=== PATIENT | female | born 1980 | race Asian ===

== ENCOUNTER 2019-08-30 18:56 | Inpatient (IN) ==
--- NOTE | 2019-08-30 20:52 | History & Physical Report ---
Date of Service August 30, 2019 Assessment & Plan (1) : Discussion with patient via [employer] continuous improvement facilitator vs repeat section. She and asked about chances of successful , per [facility] calculator, this is 49.1%. I told them that I would typically encourage a p atient to consider , as I think the chances are good if the number is above 50%. I discussed with them that I do not think her chances are very high for successful vaginal delivery because her cervix is closed, and she is not jessica, and she has been ruptured for >14 hours. She is not able to make up her mind about whether she wants to try or proceed with section. She and her want time to discuss this alone together. (2) Previous delivery affecting : History of Present Illness Chief Complaint: PROM Primary Care Provider: NO PCP 39yo @ 39 08/13 with self-reported rupture of membranes for clear fluid at 7am today. She did not contact our office throughout the day today, but then called on-call physician at approx 5:45 pm and was directed to come to labor & delivery. No contractions. Some small amount of pink tinge to fluid. + movement. is complicated by history of section. Per her operative report from [place], she had a low transverse for failure to dilate. She had originally been scheduled for repeat at 39 weeks, but this was then cancelled as she desired opportunity to . Now she is not sure what she'd like to do. otherwise complicated by advanced maternal age, late transfer of care from [place] at 32 weeks, and noncompliance with attendance at visits. Allergies Allergy/AdvReac Type Severity Reaction Status Date / Time No Known Allergies Allergy Verified 08/26/19 08:13 Home Medications Home Medications Medication Instructions Recorded Confirmed Type prenat.vits,eriberto,zng-rvyw-likok 1 tab PO DAILY 07/14/19 08/30/19 History Patient History Medical History Abnormal biochemical finding on screening of mother Surgical History S/P section 2013 FTP Family History Mother Diabetes Brother Tuberculosis Other Twins, both liveborn Social History Preferred Language: Mandarin British Communication Ability: Effective Quality Tester Required: Yes Beliefs That Will Affect Care: None marital status: marital status details: Jayce Corado [phone] Current Living Situation: Spouse Current Living Situation Comment: apartment with son current occupational status: employed 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 SVE: closed/50/high FHT 130s moderate variability, +accels. One episode of what appeared to be a deceleration for 1 minute, but baby did not trace. Otherwise Cat 1 reactive tracing [place]: Rare Constitutional: WD/WN, vitals as above Respiratory: normal respiratory effort, lungs clear to auscultation no respiratory distress Cardiovascular: Rate/Rhythm: regular rate and regular rhythm Gastrointestinal (Abdomen): Inspection/Auscultation: abdomen normal to inspection Percussion/Palpation: abdomen soft; abdomen nontender Gravid. No s/s chorio or abruption. Skin: no rashes, warm and dry Psychiatric: A+Ox3, euthymic affect Results & Data Vital Signs (Past 12 Hours) Vital Signs Temp Pulse Resp BP Pulse Ox 08/30/19 20:16 64 97 08/30/19 20:11 55 L 99 08/30/19 20:06 63 98 08/30/19 20:01 60 99 08/30/19 19:56 68 99 08/30/19 19:51 56 L 99 08/30/19 19:44 57 L 98 08/30/19 19:39 54 L 98 08/30/19 19:34 58 L 98 08/30/19 19:29 60 98 08/30/19 19:24 36.7 C 61 18 98 08/30/19 19:19 56 L 99 08/30/19 19:05 36.7 C 54 L 18 113/54 L Coding Level of Care Code None Diagnoses Z34.90 Previous delivery affecting O34.219
[2019-08-30] MEDS ORDERED: LACTATED RINGER'S 1,000 ML IV PRN (21:19)
[2019-08-30] MEDS ORDERED: OXYTOCIN 30 UNITS/500 ML BAG IV PRN (21:19)
[2019-08-30 21:43] LABS: Hematocrit (blood only) 35.9 % (37-47); Hemoglobin 12.4 g/dL (12.0-16.0); Mean Corpuscular Hemoglobin 32.5 pg (25-34); Mean Corpuscular Volume 94.2 fL (80-100); Mean Platelet Volume 10.6 fL (7.4-10.4); Platelet Count 142 K/uL (130-400); RDW Coefficient of Variation 13.9 % (11.5-14.5); RDW Standard Deviation 47.4 fL (36.4-46.3); Red Blood Count 3.81 M/uL (4.2-5.4); White Blood Count 5.26 K/uL (4.8-10.8)
[2019-08-30 21:50] LABS: Mean Corpuscular Hgb Conc 34.5 g/dL (32-36)
--- NOTE | 2019-08-30 22:11 | Anesthesiology Consultation ---
Date of Service August 30, 2019 Assessment & Plan (1) Encounter for pre-operative examination: Chart Review Chart Review: Acceptable Risk for Surgery and Patient NOT seen in Pre Admission Testing Consults Requested none History Height/Weight Height: 5 ft 1.42 in Weight: 67.132 kg Allergies Allergy/AdvReac Type Severity Reaction Status Date / Time No Known Allergies Allergy Verified 08/26/19 08:13 Medications Home Medications Medication Instructions Recorded Confirmed Last Taken prenat.vits,eriberto,opo-xzie-spxro 1 tab PO DAILY 07/14/19 08/30/19 Unknown Active Medications Generic Name Dose Route Start Last Admin Trade Name Freq PRN Reason Stop Dose Admin Lactated Ringer's 1,000 mls @ 125 mls/hr 08/30/19 21:19 08/30/19 21:55 Lr IV 09/01/19 21:18 999 mls/hr .Q8H PRN Infusion L&D Protocol Protocol Past Medical History Medical History Abnormal biochemical finding on screening of mother Exercise / Class Metabolic Activity II 4-5 Yardwork/Stairs/Walk up hill Past Family History Family History Mother Diabetes Brother Tuberculosis Other Twins, both liveborn Past Surgical History Surgical History S/P section 2013 FTP Past Anesthesia History No Hx of Anesthesia Complications and No Family Hx of Anesthesia Complications History of PONV No Hx of PONV and No Hx of Motion Sickness Social History Smoking Status: Never smoker Do You Dip or Chew Tobacco: No Hx Alcohol Use: No Hx Substance Use: No Physical Exam Vital Signs Last Vital Signs Temp 36.5 C 08/30/19 21:00 Pulse 54 L 08/30/19 21:48 Resp 18 08/30/19 21:00 BP 109/68 08/30/19 21:48 Pulse Ox 97 08/30/19 20:16 Testing Laboratory Results 08/30/19 21:31
--- NOTE | 2019-08-30 22:17 | Labor Progress Brief Note ---
Date of Service August 30, 2019 Subjective Extensive discussion regarding vs repeat . Patient now desires repeat , after review of risks of 1% chance of uterine rupture. She and seem visibly relieved to be making decision for repeat . Reviewed section consent with [facility] filter cleaner. Questions answered. Will proceed to OR. Results & Data Vital Signs (Past 12 Hours) Vital Signs Temp Pulse Resp BP Pulse Ox 08/30/19 21:48 54 L 109/68 08/30/19 21:00 36.5 C 18 08/30/19 20:58 52 L 123/70 08/30/19 20:16 64 97 08/30/19 20:11 55 L 99 08/30/19 20:06 63 98 08/30/19 20:01 60 99 08/30/19 19:56 68 99 08/30/19 19:51 56 L 99 08/30/19 19:44 57 L 98 08/30/19 19:39 54 L 98 08/30/19 19:34 58 L 98 08/30/19 19:29 60 98 08/30/19 19:24 36.7 C 61 18 98 08/30/19 19:19 56 L 99 08/30/19 19:05 36.7 C 54 L 18 113/54 L Coding Level of Care Code None
[2019-08-30] MEDS ORDERED: NALOXONE HCL 0.08 MG in SYRINGE 1.8 ML IV PRN (22:19)
[2019-08-30] MEDS ORDERED: NALBUPHINE HCL INJ 10 MG/ML AMP IV PRN (22:19)
[2019-08-30] MEDS ORDERED: DiphenhydrAMINE HCL 50 MG/ML VIAL IV PRN (22:19)
[2019-08-30] MEDS ORDERED: MEPERIDINE HCL 25 MG/ML CARP/VIAL IV PRN (22:19)
[2019-08-30] MEDS ORDERED: KETOROLAC 30 MG/ML VIAL IV PRN (22:19)
[2019-08-30] MEDS ORDERED: NALOXONE HCL 0.4 MG/1 ML VIAL/CARP IV PRN (22:19)
[2019-08-30] MEDS ORDERED: ONDANSETRON INJ 2 MG/ML 2 ML VIAL IV PRN (22:19)
[2019-08-30] MEDS ORDERED: MoRPHine SULFATE 2 MG/ML CARP IV PRN (22:19)
[2019-08-30] MEDS ORDERED: ePHEDrine sulfate 50 MG/ML AMP IV PRN (22:19)
[2019-08-30] MEDS ORDERED: NALOXONE HCL 1 MG in SODIUM CHLORIDE 0.9% 1000ML 1,000 ML IV PRN (22:19)
[2019-08-30] MEDS ORDERED: MoRPHine SULFATE PF 1 MG/ML 10 ML AMP/VIAL INT SPINAL ONE (22:19)
[2019-08-30] MEDS ORDERED: LACTATED RINGER'S 500 ML IV PRN (22:19)
[2019-08-30] MEDS ORDERED: MoRPHine SULFATE PF 1 MG/ML 10 ML AMP/VIAL ONE (22:27)
[2019-08-30] MEDS ORDERED: PHENYLEPHRINE 100MCG/ML 5ML SYR ONE (22:27)
[2019-08-30] MEDS ORDERED: ONDANSETRON INJ 2 MG/ML 2 ML VIAL ONE (22:27)
[2019-08-30] MEDS ORDERED: OXYTOCIN 10 UNITS/ML VIAL ONE (22:27)
[2019-08-30] MEDS ORDERED: fentaNYL citrate 100 MCG/2 ML VIAL ONE (22:27)
[2019-08-30] MEDS ORDERED: CITRIC ACID/SODIUM CITRATE 15 ML UDC PO SCH (22:30)
[2019-08-30] MEDS ORDERED: NO NARCOTICS OR SEDATIVES SCH (22:30)
[2019-08-30] MEDS ORDERED: CEFAZOLIN 2000MG 2,000 MG/15 ML SYR IV SCH (22:30)
[2019-08-30] MEDS ORDERED: SODIUM CHLORIDE 0.9% 1000ML 1,000 ML IV SCH (22:30)
[2019-08-31 00:09] LABS: Base Excess Cord Venous Blood -3.4 mEq/L (-7.7-1.9); Cord Venous Blood HCO3 22 mmol/L (18.4-26.8); Cord Venous Blood PCO2 42 mmHg (30.4-57.2); Cord Venous Blood PO2 31 mmHg (14.1-43.3); Cord Venous Blood pH 7.34 (7.20-7.44)
[2019-08-31 00:26] LABS: Base Excess Cord Arterial Bld -6.6 mEq/L (-9-1.8); CO2 Cord Arterial Blood 57 mmHg (39.1-73.5); HCO3 Cord Arterial Blood 22 mmol/L (19.7-28.5); Oxygen Sat Cord Arterial Blood < 60.0 % (<60); PO2 Cord Arterial Blood 20 mmHg (4.1-31.7)
[2019-08-31 00:30] LABS: O2 Saturation Cord Venous Bld < 60.0 % (<68)
--- NOTE | 2019-08-31 00:48 | Operative Report ---
PG Post Operative Report Pre & Post Diagnosis Pre: term uterine , spontaneous rupture of membranes, history of section, desire for repeat Post: same I identified the patient and participated in the time-out.: Yes Procedure Repeat low transverse section Surgeon Linda Cronin, DO Director Of Social Work Kaity Barney RN Estimated Blood Loss 800 Findings Consistent with Post-Op Diagnosis Normal appearing uterus, tubes, ovaries. Viable female infant, Apgars 8/9. Weight 8#3. Specimens placenta, cord blood, cord gas Drains kendrick, clear yellow Anesthesia Type Spinal Complications none Disposition Accompanied Patient To Recovery: Yes Disposition: L&D Indications 39yo @ 39 08/13, presented at approx 8pm after rupture of membranes at 7am today. History of section. Extensive discussion of TOLAC vs repeat , she elected for repeat . No cervical dilation on arrival. Description of Procedure The patient was seen in her room preoperatively, where risks benefits and alternatives to surgery reviewed. She elected to proceed to section. She signed informed consent. She was taken to the operating room, spinal anesthesia was administered. She was prepared and draped in the usual sterile fashion with a leftward tilt timeout was confirmed. She received 2 g of Ancef preoperatively. A Pfannenstiel skin incision was made with a scalpel, and carried through to the underlying layer of fascia. The fascia was nicked at midline, and this incision was extended bilaterally. The superior aspect of the fascial incision was grasped with Maria Antonia clamps x2, elevated off the underlying rectus abdominis muscles and dissected both sharply and bluntly. In a similar fashion, the inferior aspect of this incision was dissected. The peritoneum and rectus abdominis muscles were entered bluntly digitally and this incision was bluntly extended. The bladder blade was placed. Bladder flap was created using Metzenbaum scissors, the bladder blade was replaced. A new scalpel was used to create a low transverse uterine incision. This incision was extended bilaterally bluntly. Light meconium stained fluid was noted. The infant was delivered from a cephalic presentation, the head was delivered, no nuchal cord noted. Anterior and posterior shoulder delivered, followed by body. Spontaneous cry was heard on the field. The cord was doubly clamped and cut, the baby was handed off to the waiting mobile homes repairer. A segment was retained for cord gases. Cord blood was obtained, and the placenta was delivered spontaneously intact with a three- vessel cord. The uterus was exteriorized and cleared of all clots and debris. The hysterotomy incision was reapproximated using 0 Vicryl in a running stitch. A second layer of the same suture was used to imbricate the incision. Multiple pqnruc-ri-ugwam stitches were used to obtain hemostasis. The uterus was returned to the abdomen, and the gutters were cleared of clots and debris. The left uterine hysterotomy apex was oozing blood, and the uterus was then removed from the abdomen again. 2 O'Hume stitches were used around the left uterine vessel, as a small hematoma had formed in the broad ligament along the left side of the uterus. Excellent hemostasis was observed. The uterus was replaced into the abdomen. The gutters were again cleared of clots and debris. The hysterotomy was evaluated and found to be hemostatic. The corners of the fascial incision was grasped with Maria Antonia clamps. There were some small areas of bleeding in the rectus abdominis muscles under the inferior aspect of the fascial incision, this was made hemostatic with Bovie cautery and Arnol powder. The fascial incision was reapproximated with a running stitch of 0 Vicryl. The subcutaneous tissue was irrigated, and reapproximated using 2-0 plain gut suture in a running stitch. The skin was reapproximated using 4-0 Vicryl in a running subcuticular stitch. Steri-Strips and a bandage were applied. The patient tolerated the procedure well, and was taken to room recovery area in stable and good condition. Sponge, instrument, needle counts were correct x2 at the conclusion of the case. I attest to the content of the Intraoperative Record and any orders documented therein. Any exceptions are noted below.
--- NOTE | 2019-08-31 00:52 | Anesthesiology Progress Note ---
Date of Service August 31, 2019 Anesthesia Post Procedure Vital Signs Vital Signs: Temp Pulse Resp BP Pulse Ox 08/31/19 00:48 50 L 99 08/31/19 00:43 49 L 100 08/31/19 00:42 50 L 119/66 08/30/19 21:48 54 L 109/68 08/30/19 21:00 36.5 C 18 08/30/19 20:58 52 L 123/70 08/30/19 20:16 64 97 08/30/19 20:11 55 L 99 08/30/19 20:06 63 98 08/30/19 20:01 60 99 08/30/19 19:56 68 99 08/30/19 19:51 56 L 99 08/30/19 19:44 57 L 98 08/30/19 19:39 54 L 98 08/30/19 19:34 58 L 98 08/30/19 19:29 60 98 08/30/19 19:24 36.7 C 61 18 98 08/30/19 19:19 56 L 99 08/30/19 19:05 36.7 C 54 L 18 113/54 L Transfer of Care Handoff Completed per policy Notes Mental Status: alert / awake / arousable and participated in evaluation Patient Amnestic to Procedure: No Nausea / Vomiting: adequately controlled Pain: adequately controlled Airway Patency, RR, SpO2: stable & adequate BP & HR: stable & adequate Hydration State: stable & adequate Neuraxial Anesthesia: was administered and sensory block is resolving Anesthetic Complications: no major complications apparent and Pt Satisfied with anesthetic care
[2019-08-31] MEDS ORDERED: HYDROCORTISONE ACETATE 25 MG SUPP PR PRN (01:23)
[2019-08-31] MEDS ORDERED: SUPERCREAM 0.870% 15 GM JAR EXT PRN (01:23)
[2019-08-31] MEDS ORDERED: LACTATED RINGER'S 1,000 ML IV SCH (01:23)
[2019-08-31] MEDS ORDERED: SENNA 8.6 MG TAB PO PRN (01:23)
[2019-08-31] MEDS ORDERED: BENZOCAINE 20% AER SPR 82.5 GM CAN EXT PRN (01:23)
[2019-08-31] MEDS ORDERED: DIPHTHERIA/TETANUS/PERTUSSIS 0.5 ML SYR/VIAL IM ONE (01:23)
[2019-08-31] MEDS ORDERED: MAGNESIUM HYDROXIDE SUSP 30 ML UDC PO PRN (01:23)
[2019-08-31] MEDS ORDERED: OXYTOCIN 30 UNITS in LACTATED RINGER'S 1,000 ML IV SCH (02:45)
[2019-08-31] MEDS ORDERED: PROMETHAZINE HCL 12.5 MG in SODIUM CHLORIDE 0.9% 50 ML IV PRN (03:18)
[2019-08-31 06:34] LABS: Hematocrit (blood only) 31.8 % (37-47); Mean Corpuscular Hemoglobin 32.5 pg (25-34); Mean Corpuscular Hgb Conc 34.6 g/dL (32-36); Mean Corpuscular Volume 94.1 fL (80-100); Mean Platelet Volume 10.8 fL (7.4-10.4); Platelet Count 128 K/uL (130-400); RDW Coefficient of Variation 13.9 % (11.5-14.5); Red Blood Count 3.38 M/uL (4.2-5.4); White Blood Count 8.63 K/uL (4.8-10.8)
[2019-08-31 07:07] LABS: Basophils # (auto) 0.01 K/uL (0-0.2); Basophils % (auto) 0.1 %; Immature Granulocytes # (auto) 0.02 K/uL (0.00-0.02); Immature Granulocytes % (auto) 0.2 %; Lymphocytes # (auto) 0.67 K/uL (1.2-3.4); Lymphocytes % (auto) 7.8 %; Monocytes % (auto) 5.8 %; Neutrophils # (auto) 7.43 K/uL (1.4-6.5); Neutrophils % (auto) 86.1 %
[2019-08-31] MEDS: DOCUSATE SODIUM 100 MG CAP PO SCH ×2 (08:24→21:48)
[2019-08-31] MEDS: FERROUS SULFATE 325 MG TAB PO SCH (08:24)
[2019-08-31] MEDS: SIMETHICONE 80 MG CHEW PO SCH ×4 (08:24→21:48)
[2019-08-31] MEDS: PRENATAL VITAMIN 1 TAB PO SCH (08:24)
--- NOTE | 2019-08-31 08:28 | Obstetrical Progress Note ---
Date of Service August 31, 2019 Assessment & Plan (1) : Doing well. Will increase ambulation and diet as tolerated today. Subjective Voiding: no voiding problems and kendrick catheter in place Diet Tolerance:: regular diet Lochia:: Moderate POD#1 doing well . Has not yet ambulated. Pain controlled. Not passing gas yet. Will start gently advancing diet today. Review of Systems All systems reviewed & are unremarkable except as noted in HPI & below Physical Exam Constitutional WD/WN, vitals as above no acute distress Respiratory normal respiratory effort Cardiovascular Rate/Rhythm: regular rate and regular rhythm Gastrointestinal (Abdomen) Inspection/Auscultation: abdomen normal to inspection; abdomen not distended Percussion/Palpation: abdomen soft Genitourinary OB Exam Abdomen: + fundal height Fundus: + firm; not tender Results & Data Vital Signs (Past 12 Hours) Vital Signs Temp Pulse Pulse Resp BP BP Pulse Ox 08/31/19 07:22 37.4 C 71 16 114/64 96 08/31/19 06:16 16 97 08/31/19 05:50 16 96 08/31/19 04:30 16 95 08/31/19 03:15 36.9 C 56 L 18 110/67 98 08/31/19 02:50 56 L 109/55 L 08/31/19 02:48 59 L 97 08/31/19 02:43 65 97 08/31/19 02:42 83 107/58 L 08/31/19 02:38 62 96 08/31/19 02:33 53 L 94 08/31/19 02:32 50 L 105/59 L 08/31/19 02:29 51 L 94 08/31/19 02:28 54 L 94 08/31/19 02:23 51 L 94 08/31/19 02:22 55 L 107/62 94 08/31/19 02:18 50 L 95 08/31/19 02:13 51 L 96 08/31/19 02:12 57 L 128/75 08/31/19 02:08 50 L 96 08/31/19 02:03 50 L 96 08/31/19 02:02 51 L 129/69 08/31/19 01:58 50 L 99 08/31/19 01:53 51 L 97 08/31/19 01:52 52 L 104/59 L 08/31/19 01:48 54 L 100 08/31/19 01:43 49 L 99 08/31/19 01:42 51 L 110/59 L 08/31/19 01:38 54 L 98 08/31/19 01:33 55 L 113/55 L 99 08/31/19 01:28 59 L 99 08/31/19 01:23 57 L 100 08/31/19 01:22 52 L 107/55 L 08/31/19 01:18 55 L 99 08/31/19 01:13 55 L 99 08/31/19 01:12 60 119/74 08/31/19 01:08 54 L 100 08/31/19 01:03 53 L 100 08/31/19 01:02 54 L 118/70 08/31/19 00:58 92 H 100 08/31/19 00:53 55 L 100 08/31/19 00:52 45 L 128/69 08/31/19 00:48 50 L 99 08/31/19 00:43 49 L 100 08/31/19 00:42 50 L 119/66 08/30/19 21:48 54 L 109/68 08/30/19 21:00 36.5 C 18 08/30/19 20:58 52 L 123/70
[2019-08-31] MEDS ORDERED: DC INTRASPINAL MORPHINE SCH (16:19)
[2019-08-31] MEDS ORDERED: KETOROLAC 30 MG/ML VIAL IV PRN (16:20)
[2019-08-31] MEDS ORDERED: DiphenhydrAMINE HCL 50 MG/ML VIAL IV PRN (16:20)
[2019-08-31] MEDS ORDERED: ONDANSETRON INJ 2 MG/ML 2 ML VIAL IV PRN (16:20)
[2019-08-31] MEDS ORDERED: PROMETHAZINE HCL 25 MG in SODIUM CHLORIDE 0.9% 50 ML IV PRN (16:20)
[2019-08-31] MEDS: IBUPROFEN 600 MG TAB PO PRN (19:50)
[2019-08-31] MEDS: OXYCODONE/ACETAMINOPHEN 5mg/325mg TAB PO PRN (19:51)
[2019-09-01 06:07] LABS: Hematocrit (blood only) 28.2 % (37-47); Hemoglobin 9.9 g/dL (12.0-16.0)
[2019-09-01] MEDS ORDERED: MEASLES, MUMPS & RUBELLA VIRUS VIAL SQ ONE (07:41)
[2019-09-01] MEDS: SIMETHICONE 80 MG CHEW PO SCH ×3 (08:09→17:08)
[2019-09-01] MEDS: OXYCODONE/ACETAMINOPHEN 5mg/325mg TAB PO PRN ×4 (08:09→20:58)
[2019-09-01] MEDS: DOCUSATE SODIUM 100 MG CAP PO SCH ×2 (08:09→20:58)
[2019-09-01] MEDS: FERROUS SULFATE 325 MG TAB PO SCH (08:09)
[2019-09-01] MEDS: PRENATAL VITAMIN 1 TAB PO SCH (08:09)
[2019-09-01] MEDS: IBUPROFEN 600 MG TAB PO PRN ×4 (08:10→20:58)
--- NOTE | 2019-09-01 08:35 | Obstetrical Progress Note ---
Date of Service September 01, 2019 Assessment & Plan (1) Supervision of elderly multigravida: Post day 2 from LTCS. Doing well. Discussed ambulation and bowel care. Continue routine care (2) Previous delivery affecting : Subjective Ambulation: ambulating normally Voiding: no voiding problems Passing Gas:: No Diet Tolerance:: regular diet Lochia:: Moderate Physical Exam Constitutional WD/WN, vitals as above Respiratory normal respiratory effort; no respiratory distress and no labored breathing Gastrointestinal (Abdomen) Inspection/Auscultation: abdomen normal to inspection and + abdomen distended Percussion/Palpation: + abdomen tender and abdomen soft; no guarding and abdomen not rigid Genitourinary OB Exam Abdomen: + fundal height Fundus: + firm and + relation to umbilicus (Below); not tender and not boggy Results & Data Vital Signs (Past 12 Hours) Vital Signs Temp Pulse Resp BP Pulse Ox 09/01/19 07:20 36.7 C 67 18 103/66 95 09/01/19 00:00 36.9 C 58 L 18 102/69 96
[2019-09-01] MEDS ORDERED: bisacodyL 5 MG TABEC PO SCH (20:00)
[2019-09-02] MEDS ORDERED: bisacodyL 10 MG SUPP PR PRN (00:36)
--- NOTE | 2019-09-02 07:01 | Obstetrical Progress Note ---
Date of Service September 02, 2019 Assessment & Plan (1) Previous delivery affecting : Postoperative from section patient meets discharge criteria as she is ambulating well tolerating an oral diet has minimal bleeding and no extremity pain. Discharge instructions were reviewed and prescriptions were sent to her pharmacy of choice patient advised to call with any concerns and follow-up in the office discussed Subjective Ambulation: ambulating normally Voiding: no voiding problems Passing Gas:: Yes Diet Tolerance:: regular diet Lochia:: Small Current Pain Level(1-10): 0 Physical Exam Constitutional WD/WN, vitals as above Respiratory normal respiratory effort, lungs clear to auscultation Cardiovascular RRR, no murmur, no edema Gastrointestinal (Abdomen) normal bowel sounds, soft, nontender, no hepatosplenomegaly (Incision CD!) Results & Data Vital Signs (Past 12 Hours) Vital Signs Temp Pulse Pulse Resp BP Pulse Ox 09/01/19 23:25 98.8 F 64 18 113/56 L 95 09/01/19 20:05 99.1 F 70 16 114/73 96
[2019-09-02] MEDS: DOCUSATE SODIUM 100 MG CAP PO SCH (08:17)
[2019-09-02] MEDS: FERROUS SULFATE 325 MG TAB PO SCH (08:17)
[2019-09-02] MEDS: SIMETHICONE 80 MG CHEW PO SCH ×3 (08:17→17:24)
[2019-09-02] MEDS: PRENATAL VITAMIN 1 TAB PO SCH (08:17)
[2019-09-02] MEDS: OXYCODONE/ACETAMINOPHEN 5mg/325mg TAB PO PRN (16:04)
[2019-09-02] MEDS: IBUPROFEN 600 MG TAB PO PRN (16:04)
[2019-09-03] MEDS: DOCUSATE SODIUM 100 MG CAP PO SCH ×2 (00:36→07:54)
[2019-09-03] MEDS: SIMETHICONE 80 MG CHEW PO SCH ×3 (00:39→07:54)
[2019-09-03] MEDS: IBUPROFEN 600 MG TAB PO PRN ×2 (00:39→07:54)
[2019-09-03] MEDS: OXYCODONE/ACETAMINOPHEN 5mg/325mg TAB PO PRN (00:41)
--- NOTE | 2019-09-03 07:39 | Obstetrical Progress Note ---
Date of Service September 03, 2019 Assessment & Plan (1) S/P section: doing well. d/c today. room in if baby stays. Instructions reviewed. Day #:: 4 Subjective Ambulation: ambulating normally Voiding: no voiding problems Passing Gas:: Yes Diet Tolerance:: regular diet Lochia:: Small Feeding Type:: breast feeding Physical Exam Constitutional WD/WN, vitals as above Cardiovascular Extremities: no calf tenderness and no edema Gastrointestinal (Abdomen) soft, nt, nd ff/appropriately tender at u incision--c/d/i Psychiatric A+Ox3, euthymic affect Results & Data Vital Signs (Past 12 Hours) Vital Signs Temp Pulse Resp BP Pulse Ox 09/02/19 23:00 36.8 C 70 16 115/74 98
[2019-09-03] MEDS: FERROUS SULFATE 325 MG TAB PO SCH (07:54)
[2019-09-03] MEDS: PRENATAL VITAMIN 1 TAB PO SCH (07:54)
--- NOTE | 2019-09-06 09:23 | Discharge Summary ---
Date of Service September 06, 2019 Admission HPI Per Admitting Provider 39yo @ 39 08/13 with self-reported rupture of membranes for clear fluid at 7am today. She did not contact our office throughout the day today, but then called on-call physician at approx 5:45 pm and was directed to come to labor & delivery. No contractions. Some small amount of pink tinge to fluid. + movement. is complicated by history of section. Per her operative report from [place], she had a low transverse for failure to dilate. She had originally been scheduled for repeat at 39 weeks, but this was then cancelled as she desired opportunity to . Now she is not sure what she'd like to do. otherwise complicated by advanced maternal age, late transfer of care from [place] at 32 weeks, and noncompliance with attendance at visits. Discharge Data Consultations 08/30/19 21:20 Consult Anesthesiology Stat Hospital Course (1) S/P section: Patient was admitted after rupture of membranes, underwent repeat section. Postop course unremarkable, Discharged home POD#4. Please see documentation in chart for any further details. Coding Level of Care Code None Diagnoses S/P section Z98.891
== END 2019-09-03 12:09 | disposition home or self-care (01) | DRG 788 ==
LOC: OPB 18:56 → 4S1 18:57 → 4S2 08-31 03:10